=== PATIENT | male | born 1985 ===

== ENCOUNTER 2016-11-15 08:02 | Emergency (ER) | payer SELFPAY ==
[2016-11-15 09:45] LABS: URINE BILIRUBIN NEGATIVE (NEGATIVE); URINE BLOOD NEGATIVE (NEGATIVE); URINE GLUCOSE (UA) NEGATIVE (NEGATIVE); URINE LEUKOCYTE ESTERASE TRACE (NEGATIVE); URINE NITRITE NEGATIVE (NEGATIVE); URINE PROTEIN TRACE (NEGATIVE); URINE UROBILINOGEN 1 mg/dL (0-1 mg/dl)
[2016-11-15 09:45] LABS: ALB/GLOB RATIO 1.4 (>1.0); CALCIUM 9.6 mg/dL (8.6-10.3)
[2016-11-15 09:46] LABS: BASO # 0.1 K/mm3 (0.0-0.2); BASO % 0.6 % (0.2-1.0); EOS # 0.2 (0.0-0.5); EOS % 1.8 % (0.9-2.9); HEMATOCRIT 40.6 % (32.0-52.0); HEMOGLOBIN 13.7 gm/l (14.0-18.0); IMM NEUT% 0.3 % (0-1); LYMPH # 1.8 (1.0-4.8); MEAN CELL VOLUME 88.6 fl (80.0-94.0); MEAN CORPUSCULAR HEMOGLOBIN 29.9 pg (27.0-31.0); MEAN CORPUSCULAR HGB CONC 33.7 g/dl (33.0-37.0); MEAN PLATELET VOLUME 9.6 fl (7.4-10.4); MONO # 0.9 (0.0-0.8); MONO % 7.1 % (4-12); NEUT % 75.2 % (43-75); PLATELET COUNT 292 K/mm3 (130-400); RED CELL DISTRIBUTION WIDTH 12.8 % (11.5-14.5)
[2016-11-15 09:47] LABS: URINE APPEARANCE CLEAR; URINE COLOR AMBER
[2016-11-15 09:57] LABS: URINE BACTERIA RARE; URINE EPITHELIAL CELLS 0-1 /hpf; URINE MUCUS 2+; URINE RBC 0-1 /hpf; URINE WBC 0-2 /hpf
== END 2016-11-15 11:49 | disposition home or self-care (01) ==
LOC: ED 08:02
DX: R42 Dizziness and giddiness (principal); J45.909 Unspecified asthma, uncomplicated